=== PATIENT | female | born 1985 | race Hispanic/Latino ===

== ENCOUNTER → 2023-11-20 16:11 | Outpatient (CLI) | payer OTHER, SELFPAY ==
[2023-11-20 19:01] LABS: Urine N gonorrhoeae NOT DETECTED
[2023-11-20 19:07] LABS: Urine Chlamydia NOT DETECTED
== END ==
PROVIDERS: Family Provider Specialist; PCP Student in an Organized Health Care Education/Training Program; Visit Provider Student in an Organized Health Care Education/Training Program
DX: Z71.1 Person with feared health complaint in whom no diagnosis is made (principal)
CPT/HCPCS: 87491; 87591

== ENCOUNTER → 2023-11-20 16:31 | Outpatient (CLI) | payer OTHER, SELFPAY ==
[2023-11-21 04:37] LABS: RPR Screen Non Reactive (Non Reactive)
[2023-11-21 06:09] LABS: HSV 2 IGG AB < 0.91 index (0.00-0.90)
[2023-11-23 16:31] LABS: Hepatitis B Surface Antigen NEGATIVE s/c (NEGATIVE)
[2023-11-23 16:47] LABS: HIV 1 & 2 Ab/Ag 4th Gen Combo NEGATIVE (NEGATIVE)
[2023-11-23 19:11] LABS: Hep C Virus Ab w/Reflex Quant NEGATIVE s/c (NEGATIVE)
== END ==
PROVIDERS: Family Provider Specialist; PCP Student in an Organized Health Care Education/Training Program; Referring Provider Student in an Organized Health Care Education/Training Program; Visit Provider Student in an Organized Health Care Education/Training Program
DX: Z11.3 Encounter for screening for infections with a predominantly sexual mode of transmission (principal); Z71.1 Person with feared health complaint in whom no diagnosis is made
CPT/HCPCS: 36415; 86592; 86695; 86696; 86803; 87340; 87389; 87491; 87591

== ENCOUNTER 2024-06-04 11:31 | Emergency (ER) | payer BC, SELFPAY ==
[2024-06-04 12:00] VITALS: BP 157/77; PULSE 84; RESP 17; TEMP 37; O2SAT 99; BMI 24.7
--- NOTE | 2024-06-04 14:45 | PC.NURSE ---
Assuming care of patient at this time. Pt is sitting up in [facility]. Family at bedside. Reports that pain to site at left groin is getting worse. Was given oral ABX and primary was able to get some fluid out from abscess. Pt is ambulatory.
[2024-06-04 15:15] LABS: Hematocrit 38.5 % (36-46); Mean Corpuscular HGB Conc 33.7 % (30-36); Mean Corpuscular Hemoglobin 30.2 PG (26-34); Mean Corpuscular Volume 89.6 fL (80-100); Platelet Count 274 X10^3/uL (150-400); Red Blood Cell Count 4.29 X10^6/uL (4.0-5.2); Red Cell Distribution Width 13.1 % (11.6-14.8); White Blood Cell Count 14.2 X10^3/uL (4.5-11.0)
[2024-06-04 15:20] LABS: Alanine Aminotransferase 39 IU/L (<35); Albumin 4.3 g/dL (3.5-5.0); Albumin Globulin Ratio 1.4 (1.0-2.8); Alkaline Phosphatase 186 U/L (38-126); Aspartate Aminotransferase 39 IU/L (14-36); BUN Creatinine Ratio 17.3 (6-22); Bilirubin Total 0.6 mg/dL (0.2-1.3); Blood Urea Nitrogen 14 mg/dL (7-17); Calcium 9.1 mg/dL (8.4-10.2); Carbon Dioxide 23 mmol/L (22-32); Chloride 102 mmol/L (98-107); Estimated Glomerular Filt Rate > 60 mL/min (>60); Glucose 102 mg/dL (70-100); HEMOLYSIS 46 (0-50); Potassium 4.1 mmol/L (3.4-5.1); Sodium 134 mmol/L (137-145); Total Protein 7.3 g/dL (6.3-8.2)
--- NOTE | 2024-06-04 15:21 | ED.WOUNDLAC ---
HPI - Wound/Laceration General Chief Complaint: Wound/Laceration Stated Complaint: WIC on tues on abx- abd pain getting worse Time Seen by Provider: 06/04/24 15:18 Source: patient Mode of arrival: Wheelchair History of Present Illness HPI narrative: Patient is a 38-year-old female presenting today with increased left-sided vaginal swelling. She was seen evaluated on May 31 thought to have possible Bartholin knee and abscess. Reports increased swelling she and her boyfriend have been trying to drain it, they do report purulent drainage. She has had some body aches as well. She is currently on Bactrim. Related Data Home Medications Medication Instructions Recorded Confirmed lamotrigine 200 mg tablet 200 mg PO DAILY 11/20/23 05/31/24 mirtazapine 15 mg tablet 7.5 mg PO DAILY 11/20/23 05/31/24 venlafaxine 150 mg 150 mg PO DAILY 11/20/23 05/31/24 capsule,extended release 24 hr prazosin 1 mg capsule 1 mg PO BID 05/31/24 05/31/24 Previous Rx's Medication Instructions Recorded sulfamethoxazole 800 1 tab PO BID #14 tabs 05/31/24 mg-trimethoprim 160 mg tablet Allergies Allergy/AdvReac Type Severity Reaction Status Date / Time No Known Drug Allergies Allergy Verified 06/04/24 12:29 Patient History Social History Smoking Status: Current every day smoker Smoking Status: Current every day smoker Exam Initial Vital Signs Initial Vital Signs: Vital Signs Temperature 98.6 F 06/04/24 12:00 Pulse Rate 84 06/04/24 12:00 Respiratory Rate 17 06/04/24 12:00 Blood Pressure 157/77 H 06/04/24 12:00 Pulse Oximetry 99 06/04/24 12:00 Oxygen Delivery Method Room Air 06/04/24 12:00 GENERAL: Well-appearing, well-nourished and in no acute distress. CARDIOVASCULAR: peripheral pulses in tact, cap refill <2 sec RESPIRATORY: No respiratory distress, speaks in full sentences without difficulty PELVIC: Left side Bartholin gland hard, no significant induration or erythema no site of drainage appreciated is normal, no vaginal bleeding, no vaginal discharge, no odor, cervical os is closed, no adnexal tenderness EXTREMITIES: Normal range of motion, no clubbing or edema. Neurovascularly intact NEUROLOGICAL: Cranial nerves II through XII grossly intact. Normal gait and speech. SKIN: Warm, dry, no petechiae, no rashes or lesions. Procedures Abscess I/D I&D #1: Site: bartholin's gland Side (if applicable): left Local Anesthetic: lidocaine 1% and with epi Amount of anesthesia used (mL): 10 Technique: needle aspiration (10cc purulent drainage removed) and incised with #11 blade (attempted 4 times, unsuccessful) Amount of fluid expressed (mL): 10 Course Orders Ordered: ED Orders 06/04/24 14:55 Complete Blood Count NO DIFF Stat Comprehensive Metabolic Panel Stat Discontinued Medications Ketorolac Tromethamine (Ketorolac 30 Mg/Ml Vial) 15 mg IV NOW ONE Stop: 06/04/24 15:38 Last Admin: 06/04/24 15:40 Dose: 15 mg Documented By: Lidocaine/Epinephrine (Lidocaine 2% W/Epi Inj 20 Ml Vial) 1 ml INJ INTRA-OP ONE Stop: 06/04/24 15:34 Lidocaine/Epinephrine (Lidocaine 2% W/Epi Inj 10 Ml Vial) 1 ml INJ NOW ONE Stop: 06/04/24 16:01 Last Admin: 06/04/24 15:55 Dose: Not Given Documented By: Vital Signs Vital signs: Vital Signs - 8 hr 06/04/24 12:00 06/04/24 16:28 Temperature 98.6 F 98.4 F Pulse Rate 84 98 H Respiratory Rate 17 18 Blood Pressure 157/77 H 140/85 Pulse Oximetry 99 98 Oxygen Delivery Method Room Air Room Air MDM - Wound/Laceration Lab Data 06/04/24 14:55 06/04/24 14:55 Labs: Lab Results 06/04/24 Range/Units 14:55 WBC 14.2 H (4.5-11.0) X10^3/uL RBC 4.29 (4.0-5.2) X10^6/uL Hgb 13.0 (12.0-16.0) g/dL Hct 38.5 (36-46) % MCV 89.6 (80-100) fL MCH 30.2 (26-34) PG MCHC 33.7 (30-36) % RDW 13.1 (11.6-14.8) % Plt Count 274 (150-400) X10^3/uL Sodium 134 L (137-145) mmol/L Potassium 4.1 (3.4-5.1) mmol/L Chloride 102 (98-107) mmol/L Carbon Dioxide 23 (22-32) mmol/L BUN 14 (7-17) mg/dL Creatinine 0.81 (0.52-1.04) mg/dL Estimated GFR > 60 (>60) mL/min BUN/Creatinine Ratio 17.3 (6-22) Glucose 102 H (70-100) mg/dL Calcium 9.1 (8.4-10.2) mg/dL Total Bilirubin 0.6 (0.2-1.3) mg/dL AST 39 H (14-36) IU/L ALT 39 H (<35) IU/L Alkaline Phosphatase 186 H (38-126) U/L Total Protein 7.3 (6.3-8.2) g/dL Albumin 4.3 (3.5-5.0) g/dL Globulin 3.0 (1.7-4.1) g/dL Albumin/Globulin Ratio 1.4 (1.0-2.8) MDM Narrative Medical decision making narrative: Patient 38-year-old female presenting today with left groin swelling and pain. Seen by PCP on the 7th suspicion for Bartholin knee in gland abscess. She does have mild leukocytosis of 14 no other evidence of sepsis or sirs criteria. Attempted word catheter placement however not able to I and D with an 11 blade but I was able to get it with an 18 gauge needle. Wound culture pending Patient has an appointment with rehabilitation therapy technician in 4 days. Recommended continue supportive care. Discharge Plan Departure Patient Disposition: Home Clinical Impression: Abscess of Bartholin's gland Instructions: Bartholin Gland Cyst Activity Restrictions/Additional Instructions: *You have been diagnosed with Bartholin gland abscess *What to do: Continue cotton underwear, warm soaks baths. This may start swelling again. *Continue to take medications as directed Continue antibiotics as prescribed *Follow up with your primary care provider in 2-3 days or call [phone] *Return to ER if you should have increased pain swelling redness fever body aches or any new, worsening or concerning symptoms Prescriptions: No Action venlafaxine 150 mg capsule,extended release 24hr 150 mg PO DAILY mirtazapine 15 mg tablet 7.5 mg PO DAILY lamotrigine 200 mg tablet 200 mg PO DAILY prazosin 1 mg capsule 1 mg PO BID sulfamethoxazole-trimethoprim 800-160 mg tablet 1 tab PO BID Qty: 14 0RF Referrals: Carline Crabtree MD [Primary Care Provider] - Stand Alone Forms: Patient Portal/API/Survey
[2024-06-04] MEDS: KETOROLAC 30 MG/ML VIAL 15 MG IV (15:40)
[2024-06-04 16:28] VITALS: BP 140/85; PULSE 98; RESP 18; TEMP 36.9; O2SAT 98
== END 2024-06-04 16:29 | disposition home or self-care (01) ==
PROVIDERS: Emergency Provider Emergency Medicine; Family Provider Specialist; PCP Student in an Organized Health Care Education/Training Program
DX: N75.1 Abscess of Bartholin's gland (principal)
CPT/HCPCS: 10060; 36415; 80053; 85027; 96374; 99284; J1885